=== PATIENT | male | born 1955 | race American Indian/Alaskan Native ===

== ENCOUNTER 2020-04-06 12:36 | Emergency (ER) | payer MEDICARE ==
[2020-04-06] MEDS ORDERED: ASPIRIN 325 MG TAB PO ONE (12:57)
[2020-04-06 13:39] LABS: Basophils % (Auto) 0.7 % (0.0-1.8); Eosinophils # (Auto) 0.1 K/mm3 (0.0-0.4); Eosinophils % (Auto) 1.6 % (0.0-4.3); Hemoglobin 11.9 gm/dl (11.8-15.2); Lymphocytes # (Auto) 2.2 K/mm3 (1.2-5.4); Lymphocytes % (Auto) 44.8 % (13.4-35.0); Mean Corpuscular HGB Conc 33 % (32-34); Mean Corpuscular Volume 89 fl (84-94); Monocytes # (Auto) 0.6 K/mm3 (0.0-0.8); Monocytes % (Auto) 12.5 % (0.0-7.3); Platelet Count 148 K/mm3 (140-440); Red Blood Count 4.06 M/mm3 (3.65-5.03); Red Cell Distribution Width 16.8 % (13.2-15.2)
--- NOTE | 2020-04-06 13:41 | Emergency Department Report ---
HPI - General Chief Complaint: Chest Pain Time Seen by Provider: 04/06/20 13:26 - HPI HPI: Room 3 The patient is a 64-year-old male present with a chief complaint of chest pain. The patient states he has had intermittent chest pain and shortness of breath for the past 3 weeks. The patient states he went to an outside hospital last week and was diagnosed with a PE. Patient states he was started on Eliquis. The patient states his chest pain has been improving since his diagnosis but is still been present. The patient states he went for follow-up appointment at [facility] today and when he informed him of his chest pain he was sent to the ED for further evaluation. Patient denies nausea/vomiting, diaphoresis associated with his chest pain. Patient denies history of fever, dysuria or hematuria. Patient also states she has had had intermittent right side/flank pain for the past 3 weeks and believes it is a "pulled muscle." ED Past Medical Hx - Past Medical History Previous Medical History?: Yes Hx Pulmonary Embolism: Yes - Surgical History Past Surgical History?: Yes Additional Surgical History: Mitral valve replacment - Family History Family history: no significant - Social History Smoking Status: Former Smoker (None x1 year) Substance Use Type: None (Denies illicit drug use), Alcohol (Occasional) ED Review of Systems ROS: Stated complaint: CHEST PAIN/DR REFERRAL Other details as noted in HPI Constitutional: denies: fever Respiratory: shortness of breath Cardiovascular: chest pain Endocrine: no symptoms reported Gastrointestinal: abdominal pain (Right flank pain). denies: nausea, vomiting Genitourinary: denies: dysuria, hematuria Musculoskeletal: back pain Physical Exam - Physical Exam Physical Exam: GENERAL: The patient is well-developed well-nourished male sitting on stretcher not appearing to be in acute distress. [] HEENT: Normocephalic. Atraumatic. Extraocular motions are intact. Patient has moist mucous membranes. NECK: Supple. Trachea midline CHEST/LUNGS: Clear to auscultation. There is no respiratory distress noted. HEART/CARDIOVASCULAR: Regular. There is tachycardia. There is no gallop rub or murmur. ABDOMEN: Abdomen is soft, nontender. Patient has normal bowel sounds. There is no abdominal distention. SKIN: There is no rash. There is no edema. There is no diaphoresis. NEURO: The patient is awake, alert, and oriented. The patient is cooperative. The patient has normal speech MUSCULOSKELETAL: There is no evidence of acute injury. ED Course - Consultations Consultation #1: 04/06/20 18:41 Vascular surgery paged 04/06/20 19:[address] Zayas- patient should continue his Eliquis. May have patient follow-up in office as an outpatient ED Medical Decision Making - Lab Data Result diagrams: 04/06/20 13:10 04/06/20 13:10 Laboratory Tests 04/06/20 04/06/20 04/06/20 13:10 13:10 15:43 WBC 4.8 RBC 4.06 Hgb 11.9 Hct 36.0 MCV 89 MCH 29 MCHC 33 RDW 16.8 H Plt Count 148 Lymph % (Auto) 44.8 H [place] % (Auto) 12.5 H Eos % (Auto) 1.6 Baso % (Auto) 0.7 Lymph # (Auto) 2.2 [place] # (Auto) 0.6 Eos # (Auto) 0.1 Baso # (Auto) 0.0 Seg Neutrophils % 40.4 Seg Neutrophils # 1.9 Sodium 142 Potassium 3.7 Chloride 106.7 Carbon Dioxide 19 L Anion Gap 20 BUN 15 Creatinine 1.3 Estimated GFR 55 BUN/Creatinine Ratio 12 Glucose 97 Calcium 9.4 Troponin T < 0.010 < 0.010 - EKG Data -: EKG Interpreted by Me EKG shows normal: sinus rhythm Rate: normal - EKG Data When compared to previous EKG there are: previous EKG unavailable Interpretation: nonspecific ST-T wave ishmael - Radiology Data Radiology results: report reviewed (Chest x-ray), image reviewed (Chest x-ray) interpreted by me: Chest x-ray-left lower lobe opacity. No pneumothorax. - Differential Diagnosis PE, pneumonia, UTI, renal colic Critical care attestation.: If time is entered above; I have spent that time in minutes in the direct care of this critically ill patient, excluding procedure time. ED Disposition Clinical Impression: Pulmonary embolus Disposition: DC-01 TO HOME OR SELFCARE Is pt being admited?: No Does the pt Need Aspirin: No Condition: Stable Instructions: Pulmonary Embolism (GEN) Additional Instructions: Return to the emergency department should you develop worsening symptoms, inability to tolerate food or liquids, high fever or any other concerns Referrals: KARINA PRESLEY III, [employer]- [Primary Care Provider] - 3-5 Days GORDO ZAYAS MD [Staff Physician] - 7-10 days (Dr. Zayas is a vascular surgeon. Please follow-up with him for further evaluation) Time of Disposition: 19:26
[2020-04-06 13:52] LABS: BUN/Creatinine Ratio 12; Blood Urea Nitrogen 15 mg/dL (9-20); Calcium 9.4 mg/dL (8.4-10.2); Hemolysis Index 5
--- NOTE | 2020-04-06 15:49 | XRay Report ---
XR chest routine 2V INDICATION / CLINICAL INFORMATION: Chest Pain COMPARISON: None available. FINDINGS: SUPPORT DEVICES: None. HEART / MEDIASTINUM: No acute abnormality. Prior valve replacement. LUNGS / PLEURA: There is a left lateral lower lung zone 4.3 cm opacity. Costophrenic sulci are sharp. No pneumothorax. ADDITIONAL FINDINGS: No significant additional findings. IMPRESSION: 1. 0.3 cm left lateral lung zone lesion. Recommend CT of the chest for further evaluation. Signer Name: Hardy Nayak MD Signed: 04/06/2020 3:44 PM Workstation Name: [id number]
--- NOTE | 2020-04-06 17:38 | Cat Scan Report ---
CT abdomen pelvis w con, CT angio chest INDICATION / CLINICAL INFORMATION: Right flank pain. TECHNIQUE: Axial CT images were obtained after injection of Omnipaque 350, 100 cc IV contrast using CTA protocol . 3 plane MIP / 3D reconstructions were produced. All CT scans at this location are performed using C T dose reduction for ALARA by means of automated exposure control. COMPARISON: None available. CTA chest: Large obstructing pulmonary embolus at the left lower lobe. There is extensive pulmonary i nfarct and underlying necrosis additional more linear infarct is seen at the right lower lobe which h as a chronic appearance. Mild bullous disease is greatest at the right upper lobe. No new mediastinal mass or adenopathy. No aneurysm or dissection. CT abdomen: Reflux of contrast into the IVC and superior vena cava compatible with increased central venous pressure. Mild heterogeneity is present at the liver. The remaining parenchymal organs are unr emarkable other than small renal cysts and a probable small nonobstructing right renal stone. Negative for abdominal mass, fluid or inflammation. The bowel is not dilated or thickened. Scattered diverticula are noninflamed. CT PELVIS: Negative for mass, fluid or inflammation. The prostate gland is mildly enlarged. A fat-con taining left inguinal hernia is small. There are several bladder diverticula. The largest is anterior ly located on the left towards the dome measuring 3.2 cm. IMPRESSION: 1. 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 2. Chronic appearing pulmonary embolus right lower lobe. 3. Noninflamed colonic diverticulosis. 4. Prostate enlargement. 5. Bladder diverticula. 6. Small fat-containing left inguinal hernia. CRITICAL RESULT: Time of Discovery: 4:25 PM Time of Communication: 4:29 PM Licensed Practitioner Receiving Report: Dr. Carias Read Back Performed: Yes. Signer Name: Arben Tong MD Signed: 04/06/2020 5:34 PM Workstation Name: [id number]
[2020-04-06 19:57] VITALS: BP 109/77
== END 2020-04-06 19:50 | disposition home or self-care (01) ==
LOC: ED 12:36
DX: I26.99 Other pulmonary embolism without acute cor pulmonale (principal); R10.9 Unspecified abdominal pain; Z98.890 Other specified postprocedural states; Z87.891 Personal history of nicotine dependence
CPT/HCPCS: 36415; 71046; 71275; 74177; 80048; 84484; 85025; 93005; 99285; Q9967